=== PATIENT | female | born 1930 | race Caucasian/White ===

== ENCOUNTER → 2016-07-20 | Outpatient (CLI) | payer MEDICARE, OTHER ==
[2014-05-30 08:45] VITALS: BP 154/56
[~2016-07-20] MED LIST: AMIT100T PO; CYCL1DRO EACHEYE; HYDR-2666 PO; OLAN10TA9 PO; PROVENTIL HFA6.7 GM IH
--- NOTE | 2016-07-20 16:13 | KCIC ---
PROCEDURE MRI lumbar spine without contrast. HISTORY Low back pain. Symptoms are chronic. TECHNIQUE Sagittal T1, sagittal T2, sagittal STIR, axial T1, and axial T2 sequences are provided. There is mild motion, sequences repeated. COMPARISON None. FINDINGS There is 2-3 millimeters of anterolisthesis at L3-L4 and at L4-L5. There is a Schmorl's node in the superior endplate of T12, could also represent old compression fracture. There is no associated edema. There is no worrisome marrow lesion. There is diffuse disc desiccation, disc height is relatively maintained. The conus medullaris is normal in signal intensity and in position, allowing for motion limitations. The numbering system assumes 5 lumbar type vertebral bodies. Findings by individual level are as follows: T11-T12: Minimal disc bulge and facet hypertrophy are noted with minimal foraminal narrowing. T12-L1: Mild disc bulge and facet hypertrophy are noted without canal or foraminal compromise. L1-L2: Mild disc bulge and facet hypertrophy are noted with mild foraminal narrowing. Midline AP diameter of the thecal sac is not narrowed, 14 millimeters. L2-L3: Mild disc bulge and [id number] facet and ligamentum flavum hypertrophy are noted. Midline AP diameter of the thecal sac is 11 millimeters. There is minimal foraminal narrowing. L3-L4: In addition to the slight anterolisthesis, there is a diffuse disc bulge and moderate facet hypertrophy. There is mild to moderate ligamentum flavum hypertrophy. Midline AP diameter of the thecal sac is narrowed to 8 millimeters. There is lateral recess narrowing, greater on the left. There is minimal foraminal narrowing. L4-L5: Diffuse disc bulge is noted. There is moderate to severe facet hypertrophy and there is moderate ligamentum flavum hypertrophy. Midline AP diameter of the thecal sac is narrowed to 7 millimeters. There is lateral recess narrowing bilaterally. There is mild to moderate bilateral foraminal narrowing L5-S1: Disc bulge and facet hypertrophy are noted with mild left foraminal narrowing. IMPRESSION 1. Degenerative disc disease and facet and ligamentum flavum hypertrophy are noted throughout the lumbar spine. Findings are greatest at L3-L4 and L4-L5. 2. Exam is mildly degraded by motion. Electronically signed by: Gracia Templeton MD (Jul 20, 2016 16:12:11)
== END | disposition home or self-care (01) ==
LOC: KCIC MRI 15:14
DX: M51.36 Other intervertebral disc degeneration, lumbar region (principal); M46.06 Spinal enthesopathy, lumbar region
CPT/HCPCS: 72148